=== PATIENT | female | born 1970 ===

== ENCOUNTER → 2017-07-20 | Outpatient (CLI) | payer BC ==
--- NOTE | 2017-07-21 19:22 | Diagnostic Imaging Report ---
INDICATION: Routine screening. No prior mammograms are available for comparison. This is a baseline study. 2-D and 3-D bilateral screening mammography was performed. The current study was also evaluated with a Computer Aided Detection (CAD) system. FINDINGS: Both breasts are heterogeneously dense, limiting the sensitivity of mammography. No mass or malignant-appearing microcalcifications are seen. There are benign calcifications on the left. The axillae are unremarkable. IMPRESSION: No mammographic features suspicious for malignancy are identified. ACR BI-RADS Category 2: Benign findings. Result letter will be mailed to the patient. Note: At least 10% of breast cancer is not imaged by mammography. Dictated by: Dictated on workstation # [id number]
== END ==
LOC: RAD 15:10
PROVIDERS: ATTEND Nurse Practitioner Primary Care
DX: Z12.31 Encounter for screening mammogram for malignant neoplasm of breast (principal)
CPT/HCPCS: 77067

== ENCOUNTER 2022-12-04 18:51 | Emergency (ER) | payer SELFPAY ==
[~2022-12-04] VITALS: Ht 157.4 cm; Wt 105.0 kg
[2022-12-04] MEDS ORDERED: NS IV 1000 ML 1,000 ML IV STA (19:05)
[2022-12-04] MEDS ORDERED: fentaNYL INJECTION 100 MCG/2 ML VIAL IVP STA (19:05)
--- NOTE | 2022-12-04 19:09 | ED Abdominal Pain ---
General Chief Complaint: Abdominal/GI Problems Stated Complaint: AB AND HIP PAIN Source of Information: Patient Exam Limitations: No Limitations (ROXANA CRUZ) History of Present Illness Date Seen by Provider: Dec 04, 2022 Time Seen by Provider: 19:07 Initial Comments Patient is a 52-year-old female presents to ED with left lower quad abdominal pain. This pain started around 3 PM. Rates pain 10 out of 10. Pain is described sharp radiates to the left lower back. Pain is not worse with movement. She states pain has been constant. No pain with urination frequent urination dark urine. History of C-sections. She states she has had some irregular menstrual cycles for the past year. Recently finished her menstrual cycle. No current vaginal bleeding vaginal discharge fever, chills, nausea, vomiting, diarrhea, chest pain or shortness of breath. Denies taking thing for pain. Was evaluated at [facility] and was sent to the ED for further evaluation (ROXANA CRUZ) Allergies and Home Medications Allergies Coded Allergies: No Known Drug Allergies (Unverified , 12/04/22) Patient Home Medication List Home Medication List Reviewed: Yes (ROXANA CRUZ) Hydrocodone/Acetaminophen (Hydrocodone-Acetamin 5-325 mg) 5 Mg-325 Mg Tablet, 1 TAB PO Q4H PRN for PAIN-MODERATE (5-7) Prescribed by: KINA GUILLERMO on 12/04/222153 Review of Systems Review of Systems Constitutional: No chills, No diaphoresis, No malaise, No weakness EENTM: No Double Vision, No Eye Pain Respiratory: Denies Cough, Denies Orthopnea Cardiovascular: Denies Chest Pain Gastrointestinal: Abdominal Pain; Denies Diarrhea, Denies Nausea, Denies Vomiting Genitourinary: Denies Burning, Denies Discharge, Denies Drainage, Denies Frequency Musculoskeletal: No back pain, No joint pain Skin: No change in color Psychiatric/Neurological: Denies Anxiety, Denies Depressed (ROXANA CRUZ) All Other Systems Reviewed Negative Unless Noted: Yes (ROXANA CRUZ) Past Rvdswdi-Vbxygj-Yaofxw Hx Patient Social History Tobacco Use?: No Use of E-Cig and/or Vaping dev: No Substance use?: No Alcohol Use?: No Pt feels they are or have been: No (ROXANA CRUZ) Immunizations Up To Date Influenza Vaccine Up-to-Date: No; Not Current (ROXANA CRUZ) Past Medical History Surgery/Hospitalization HX: (ROXANA CRUZ) Physical Exam Vital Signs Vital Signs - First Documented 12/04/22 19:00 Temp 36.9 Pulse 85 Resp 16 B/P (MAP) 149/89 (109) Pulse Ox 97 O2 Delivery Room Air (GOVIND,TREMAINE K DO) Vital Signs Capillary Refill : (ROXANA CRUZ) Height/Weight/BMI Height: '" Weight: lbs. oz. kg; BMI Method: General Appearance: WD/WN, no apparent distress HEENT: PERRL/EOMI, normal ENT inspection, TMs normal, pharynx normal Neck: non-tender, full range of motion, supple Respiratory: chest non-tender, lungs clear, normal breath sounds, no respiratory distress, no accessory muscle use Cardiovascular: regular rate, rhythm, no edema, no gallop, no JVD Gastrointestinal: normal bowel sounds, soft, no organomegaly, tenderness (Left lower quadrant tenderness) Extremities: normal range of motion, non-tender, normal inspection Back: normal inspection, CVA tenderness (L) Neurologic/Psychiatric: visiting nurse II-XII nml as tested, no motor/sensory deficits, alert, normal mood/affect, oriented x 3 Skin: normal color, warm/dry (ROXANA CRUZ) Progress/Results/Core Measures Results/Orders Lab Results Laboratory Tests Test 12/04/22 19:07 12/04/22 19:55 Range/Units White Blood Count 6.9 4.3-11.0 10^3/uL Red Blood Count 4.28 3.80-5.11 10^6/uL Hemoglobin 12.5 11.5-16.0 g/dL Hematocrit 39 35-52 % Mean Corpuscular Volume 90 80-99 fL Mean Corpuscular Hemoglobin 29 25-34 pg Mean Corpuscular Hemoglobin Concent 33 32-36 g/dL Red Cell Distribution Width 13.1 10.0-14.5 % Platelet Count 242 130-400 10^3/uL Mean Platelet Volume 10.7 9.0-12.2 fL Immature Granulocyte % (Auto) 0 % Neutrophils (%) (Auto) 66 42-75 % Lymphocytes (%) (Auto) 24 12-44 % Monocytes (%) (Auto) 7 0-12 % Eosinophils (%) (Auto) 2 0-10 % Basophils (%) (Auto) 0 0-10 % Neutrophils # (Auto) 4.5 1.8-7.8 10^3/uL Lymphocytes # (Auto) 1.6 1.0-4.0 10^3/uL Monocytes # (Auto) 0.5 0.0-1.0 10^3/uL Eosinophils # (Auto) 0.2 0.0-0.3 10^3/uL Basophils # (Auto) 0.0 0.0-0.1 10^3/uL Immature Granulocyte # (Auto) 0.0 0.0-0.1 10^3/uL Sodium Level 138 135-145 MMOL/L Potassium Level 3.6 3.6-5.0 MMOL/L Chloride Level 104 98-107 MMOL/L Carbon Dioxide Level 22 21-32 MMOL/L Anion Gap 12 5-14 MMOL/L Blood Urea Nitrogen 11 7-18 MG/DL Creatinine 0.67 0.60-1.30 MG/DL Estimat Glomerular Filtration Rate 105 BUN/Creatinine Ratio 16 Glucose Level 112 H 70-105 MG/DL Calcium Level 9.1 8.5-10.1 MG/DL Corrected Calcium 8.9 8.5-10.1 MG/DL Total Bilirubin 0.4 0.1-1.0 MG/DL Aspartate Amino Transf (AST/SGOT) 82 H 5-34 U/L Alanine Aminotransferase (ALT/SGPT) 78 H 0-55 U/L Alkaline Phosphatase 76 40-136 U/L Total Protein 8.0 6.4-8.2 GM/DL Albumin 4.2 3.2-4.5 GM/DL Lipase 19 8-78 U/L Urine Color ORANGE Urine Clarity SLIGTLY CLOUDY Urine pH 8.0 5-9 Urine Specific Blackwell 1.015 L 1.016-1.022 Urine Protein 1+ H NEGATIVE Urine Glucose (UA) NEGATIVE NEGATIVE Urine Ketones TRACE H NEGATIVE Urine Nitrite NEGATIVE NEGATIVE Urine Bilirubin NEGATIVE NEGATIVE Urine Urobilinogen 0.2 < = 1.0 MG/DL Urine Leukocyte Esterase NEGATIVE NEGATIVE Urine RBC (Auto) 3+ H NEGATIVE Urine RBC RARE /HPF Urine WBC RARE /HPF Urine Squamous Epithelial Cells 2-5 /HPF Urine Crystals PRESENT H /LPF Urine Amorphous Sediment MOD MARILIA PHOSPHATE H /LPF Urine Bacteria FEW H /HPF Urine Casts NONE /LPF Urine Mucus NEGATIVE /LPF Urine Culture Indicated YES (GOVINDTREMAINE Mae GOTTI) Micro Results Microbiology 12/04/22 Urine Culture - Final, Complete See Comments (TREMAINE FAUST DO) Vital Signs/I&O 12/04/22 12/04/22 19:00 22:04 Temp 36.9 Pulse 85 81 Resp 16 16 B/P (MAP) 149/89 (109) 141/91 Pulse Ox 97 98 O2 Delivery Room Air Room Air (TREMAINE FAUST DO) Departure Communication (PCP) Patient is a 52-year-old female speaking language barrier leather 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 Started around 3 PM. Pain radiates to the left-sided lower back. Denies nausea vomiting diarrhea or urinary symptoms. She has been experiencing abnormal vaginal bleeding. She states her bleeding is irregular. Concern that she may be experiencing premenopause. History of C-sections denies of any other surgeries in her abdomen. Was sent from [facility] for further evaluation. Differential diagnosis ovarian cyst, uterine fibroid, premenopause, UTI, cystitis, PID, diverticulitis. CBC, CMP, lipase urinalysis was ordered. She did receive a dose of fentanyl and a liter of fluid with improvement of pain. He hematuria noted on her urinalysis without evidence of infection. CBC, CMP grossly unrema rkable. Slight elevated liver enzymes. Normal bilirubin, kidney function. She has no right upper quadrant or right lower quadrant tenderness. CT abdomen pelvis shows a left adnexal cyst measuring 3.6 cm. Hepatic steatosis and cholelithiasis with distended gallbladder. Since she is having no right upper quadrant tenderness likely more chronic findings. Denies specific pain with eating. Due to this large left adnexal cyst ultrasound was ordered to rule out ovarian torsion. Ultrasound shows a dominant follicle cyst on left ovary measuring 4.0 cm. No evidence of torsion or free fluid. Thickened endometrium measuring 1 cm with abnormal appearance of the lower uterine segment. Concern for menopausal state versus cancer. Unknown known when her last Pap smear. No strong family history of uterine cancer. At this time provided outpatient follow-up for [employer]. We will provide a few days worth of pain medication. Further evaluation is needed. If any increasing pain fever chills vomiting to return back to ED. Patient agrees with plan of action. (ROXANA CRUZ) Impression Primary Impression: Ovarian cyst Disposition: 01 HOME, SELF-CARE Condition: Stable Departure-Patient Inst. Decision time for Depature: 21:52 (ROXANA CRUZ) Referrals: [facility] [place] ([place]) Primary Care Physician IRA MONAHAN DO Patient Instructions: Ovarian cysts Add. Discharge Instructions: Take pain medication as prescribed. Suggest following up with gynecology for further evaluation. If any worsening symptoms such as severe pain, intractable vomiting, fever to return back to ED. All discharge instructions reviewed with patient and/or family. Voiced understanding. Scripts Hydrocodone/Acetaminophen (Hydrocodone-Acetamin 5-325 mg) 5 Mg-325 Mg Tablet 1 TAB PO Q4H PRN for PAIN-MODERATE (5-7), #8 TAB Prov: ROXANA CRUZ 12/04/22 ATTENDING PHYSICIAN NOTE: I WAS PHYSICALLY PRESENT ER PHYSICIAN, BUT I WAS NOT INVOLVED IN ANY DECISION MAKING OR ANY CARE OF THIS PATIENT AND I AM NOT COLLABORATING PHYSICIAN. (TREMAINE FAUST DO) ROXANA CRUZ Dec 04, 2022 19:09 TREMAINE FAUST DO Dec 06, 2022 18:09
[2022-12-04 19:15] LABS: BASOPHILS % (AUTO) 0 % (0-10); EOSINOPHILS # (AUTO) 0.2 10^3/uL (0.0-0.3); EOSINOPHILS % (AUTO) 2 % (0-10); HEMATOCRIT 39 % (35-52); HEMOGLOBIN 12.5 g/dL (11.5-16.0); LYMPHOCYTES # (AUTO) 1.6 10^3/uL (1.0-4.0); LYMPHOCYTES % (AUTO) 24 % (12-44); MEAN CORPUSCULAR HEMOGLOBIN 29 pg (25-34); MEAN CORPUSCULAR HGB CONC 33 g/dL (32-36); MEAN CORPUSCULAR VOLUME 90 fL (80-99); MEAN PLATELET VOLUME 10.7 fL (9.0-12.2); MONOCYTES # (AUTO) 0.5 10^3/uL (0.0-1.0); MONOCYTES % (AUTO) 7 % (0-12); NEUTROPHILS # (AUTO) 4.5 10^3/uL (1.8-7.8); NEUTROPHILS % (AUTO) 66 % (42-75); PLATELET COUNT 242 10^3/uL (130-400); WHITE BLOOD COUNT 6.9 10^3/uL (4.3-11.0)
[2022-12-04] MEDS ORDERED: HOLD METFORMIN - RECEIVED CONTRAST 20 ML VIAL IV SCH (19:15)
[2022-12-04] MEDS ORDERED: IOHEXOL 350 MG/ML 100 ML (OMNIPAQUE 350) VIAL IV ONE (19:15)
[2022-12-04] MEDS ORDERED: NS 100 ML (IVPB) BAG IV ONE (19:15)
[2022-12-04 19:34] LABS: ALBUMIN 4.2 GM/DL (3.2-4.5)
[2022-12-04 19:35] LABS: POTASSIUM 3.6 MMOL/L (3.6-5.0)
[2022-12-04 19:36] LABS: CALCIUM 9.1 MG/DL (8.5-10.1)
[2022-12-04 19:39] LABS: BILIRUBIN,TOTAL 0.4 MG/DL (0.1-1.0)
[2022-12-04 19:41] LABS: CREATININE SERUM 0.67 MG/DL (0.60-1.30)
[2022-12-04] MEDS ORDERED: ONDANSETRON INJECTION 4 MG/2 ML (SDV) IVP ONE (20:00)
--- NOTE | 2022-12-04 20:00 | Diagnostic Imaging Report ---
EXAMINATION: CT abdomen and pelvis with intravenous contrast. TECHNIQUE: Multiple contiguous axial images were obtained through the abdomen and pelvis after the uneventful administration of intravenous contrast. All CT scans use one or more of the following dose optimizing techniques: automated exposure control, MA and/or KvP adjustment based on patient size and exam type or iterative reconstruction. HISTORY: Left lower quadrant abdominal pain. COMPARISON: None available. FINDINGS: The heart is unremarkable. Hazy opacities are seen in the lung bases. There is hepatic steatosis with focal fatty sparing in the gallbladder fossa. No focal hepatic lesions. The portal vein is patent. The gallbladder is distended. Numerous gallstones are seen within the gallbladder lumen. No intra or extrahepatic biliary dilation. The spleen, pancreas, adrenal glands, and kidneys have a normal appearance. There is no pathologically enlarged mesenteric or retroperitoneal adenopathy. The bowel loops are nondilated. The appendix is visualized in the right lower quadrant and has a normal appearance. There is no free fluid or free air. No acute osseous abnormalities. Ureters and bladder are grossly normal. Adnexal cyst is seen in the left measuring 3.6 x 3.3 cm. There is no free air, loculated collection, or adenopathy in the pelvis. IMPRESSION: 1. Left adnexal cyst measuring 3.6 cm. If indicated pelvic ultrasound could be performed to further evaluate. 2. Hepatic steatosis. 3. Cholelithiasis within a distended gallbladder. Recommend correlation with patient history and symptoms and if indicated liver gallbladder ultrasound to further evaluate. Dictated by: Dictated on workstation # [id number]
[2022-12-04 20:25] LABS: CLARITY,URINE SLIGTLY CLOUDY; COLOR,URINE ORANGE; GLUCOSE, URINE (UA) NEGATIVE (NEGATIVE); PROTEIN,URINE 1+ (NEGATIVE)
[2022-12-04 20:26] LABS: AMORPHOUS SEDIMENT,UR MOD AMOR PHOSPHATE /LPF; BACTERIA,URINE FEW /HPF; BILIRUBIN,URINE NEGATIVE (NEGATIVE); KETONES,URINE TRACE (NEGATIVE); LEUKOCYTE ESTERASE ,URINE NEGATIVE (NEGATIVE); NITRITE,URINE NEGATIVE (NEGATIVE); RBC,URINE RARE /HPF; WBC,URINE RARE /HPF
[2022-12-04] MEDS ORDERED: ACHD5005 PO (21:53)
[2022-12-04] MEDS ORDERED: HYDROcodone/ACETAMINOPHEN 5 MG/325 MG TABLET PO ONE (22:00)
[2022-12-04 22:04] VITALS: BP 141/91
--- NOTE | 2022-12-04 22:05 | Diagnostic Imaging Report ---
PROCEDURE: US NONOB transvaginal. TECHNIQUE: Multiple real-time grayscale images were obtained of the pelvis in various projections endovaginally. INDICATION: Left lower quadrant pain. COMPARISON: CT performed the same day. . FINDINGS: Transabdominal: The uterus and adnexa have a unremarkable transabdominal appearance. Transvaginal images were obtained for additional characterization. Transvaginal: The uterus is retroverted and measures 14.4 x 5.9 x 6.8 cm. The endometrial stripe is thickened measuring 1.0 cm. There is a heterogeneous appearance of the lower uterine segment measuring 1.2 x 0.4 cm. The right ovary is well visualized measuring 4.1 x 1.3 x 3.6 cm and demonstrating normal color Doppler flow. The left ovary is well-visualized measuring 4.5 x 5.0 x 3.1 cm with normal color Doppler flow. Dominant follicle/cyst is seen in the left ovary measuring 4.0 x 2.5 cm. No adnexal masses. No free fluid is seen in the pelvis. IMPRESSION: 1. Dominant follicle/cyst in the left ovary measuring 4.0 cm. No evidence of torsion. No free fluid. 2. Thickened endometrium measuring 1 cm with abnormal appearance of the lower uterine segment. Recommend correlation with menopausal status and gynecologic consultation for possible biopsy. Dictated by: Dictated on workstation # [id number]
== END 2022-12-04 22:04 | disposition home or self-care (01) ==
LOC: EDUNIT# 18:51 → ER 18:55
DX: N83.02 Follicular cyst of left ovary (principal); K76.0 Fatty (change of) liver, not elsewhere classified; K80.20 Calculus of gallbladder without cholecystitis without obstruction
CPT/HCPCS: 36415; 74177; 76830; 80053; 81000; 83690; 85025; 87088; 96361; 96374; 96375